=== PATIENT | female | born 1970 | race Caucasian/White ===

== ENCOUNTER 2018-08-23 18:31 | Emergency (ER) | payer MEDICAID, OTHER ==
[~2018-08-23] VITALS: Ht 149.9 cm; Wt 81.6 kg
[2018-08-23 18:42] VITALS: Ht 149.9 cm; Wt 81.6 kg
--- NOTE | 2018-08-23 19:57 | ERD ---
ER Documentation Chief Complaint Chief Complaint left leg pain x 1 month HPI 48-year-old female, previously healthy, presents to the emergency department, complaining of left groin pain radiating to the left lower extremity for 1 month. No history of trauma. The pain is sharp, intermittent, exacerbated by flexion of the left hip, 7/10. The patient is able to ambulate as usually. She denies fever, no chills, no urinary symptoms, no abdominal pain, no rashes. ROS All systems reviewed and are negative except as per history of present illness. Medications Home Meds Active Scripts Ibuprofen* (Motrin*) 400 Mg Tab, 400 MG PO Q6H PRN for PAIN AND OR ELEVATED TEMP, #20 TAB Prov:SHEILA KESSLER MD 08/23/18 Acetaminophen* (Tylenol*) 325 Mg Tablet, 2 TAB PO Q6 PRN for PAIN AND OR ELEVATED TEMP, #20 TAB Prov:SHEILA KESSLER MD 08/23/18 Baclofen* (Baclofen*) 10 Mg Tablet, 10 MG PO QHS, #10 TAB Prov:SHEILA KESSLER MD 08/23/18 Allergies Allergies: Coded Allergies: No Known Allergy (Unverified , 08/23/18) PMhx/Soc Medical and Surgical Hx: pt denies Medical Hx, pt denies Surgical Hx Hx Alcohol Use: No Hx Substance Use: No Hx Tobacco Use: No Smoking Status: Never smoker FmHx Family History: No diabetes, No coronary disease Physical Exam Vitals Vital Signs Date Temp Pulse Resp B/P (MAP) Pulse Ox O2 O2 Flow FiO2 Time Delivery Rate 08/23/18 82 16 142/78 98 Room Air 22:51 (99) 08/23/18 98.7 74 20 164/80 99 18:42 (108) Physical Exam Const: No acute distress Head: Atraumatic Eyes: Normal Conjunctiva ENT: Normal External Ears, Nose and Mouth. Neck: Full range of motion. No meningismus. Resp: Clear to auscultation bilaterally Cardio: Regular rate and rhythm, no murmurs Abd: Soft, non tender, non distended. Normal bowel sounds Skin: No petechiae or rashes Back: No midline or flank tenderness Ext: Left hip with tenderness over the anterior aspect with passive flexion. Otherwise, no cyanosis, or edema Neur: Awake and alert Psych: Normal Mood and Affect Results 24 hrs Laboratory Tests Test 08/23/18 20:14 08/23/18 20:18 POC Beta HCG, Qualitative NEGATIVE Bedside Urine pH (LAB) 6.5 Bedside Urine Protein (LAB) Negative Bedside Urine Glucose (UA) Negative Bedside Urine Ketones (LAB) Negative Bedside Urine Blood Trace-lysed Bedside Urine Nitrite (LAB) Negative Bedside Urine Leukocyte Esterase (L Negative Current Medications Medications Dose Sig/Jose Alejandro Start Time Status Last (Trade) Ordered Route PRN Stop Time Admin Dose Reason Admin Ketorolac 30 mg ONCE STAT 08/23/18 DC 08/23/18 Tromethamine IM 20:00 08/23/18 20:22 (Toradol) 20:04 650 mg ONCE ONCE 08/23/18 DC 08/23/18 Acetaminophen PO 20:00 08/23/18 20:22 (Tylenol 20:04 Tab) Procedures/MDM 1 month with left hip pain: no red flags. Differential diagnosis include but not limited to: Musculoskeletal injury, arthritis, fracture, DVT; low suspicion for acute limb ischemia, septic arthritis, necrotizing fasciitis, compartment syndrome. Neurovascular exam grossly intact. no clinical findings suggestive of acute infectious process, no acute deformity, no edema, no rashes. Pertinent Data: X-rays: No fracture or dislocation Physical examination and clinical presentation consistent most likely with strain of the left inguinal muscle. During the ED course the patient received treatment with Toradol IM presenting overall improvement of the symptoms. Results and clinical impression discussed with the patient who agrees with management. The patient is stable to be treated outpatient and will be discharge d home with recommendations for ice, rest and NSAIDs 3 times daily for 5 days and close monitoring. The patient was instructed to follow up with the primary care provider in the next 48h. If symptoms persist, worsen or new symptoms develop, then patient should return to the ED immediately. Instructions explained and given to patient with acknowledgment and demonstrated understanding. Disclaimer: Inadvertent spelling and grammatical errors are likely due to EHR/dictation software use and do not reflect on the overall quality of patient care. Also, please note that the electronic time recorded on this note does not necessarily reflect the actual time of the patient encounter. Departure Diagnosis: Primary Impression: Left hip pain Additional Impression: Strain of left inguinal muscle Condition: Stable Additional Instructions: Muchas narcisa por [facility] para butler servicio. Esperamos que en butler visita a la alicia de emergencia butler problema medico haya sido solucionado y que se sienta mucho mejor. Para estar seguros que butler mejoria sigue en proceso, le pedimos el favor de hacer chris andrea de seguimiento medico con butler doctor primario en los proximos 2-4 waters. Lleve con usted estos documentos y las medicinas recetadas. Si raquel sintomas empeoran, NO SE ESPERE, por favor regrese a alicia de emergencia INMEDIATAMENTE. En rodolfo que usted no tenga un mdico de atencin primaria: Llame al mdico o clnica comunitaria de referencia que aparece abajo [place]chell las horas de consultorio para hacer chris andrea para que le vean. CLINICAS: [facility] [phone] [facility] [phone] [facility] [phone] [facility] [phone] [facility] [place] [id number] [phone] [facility] [phone] SHEILA CARRENO MD Aug 23, 2018 19:57
[2018-08-23] MEDS ORDERED: ACETAMINOPHEN 325 MG TAB PO ONE (20:00)
[2018-08-23] MEDS ORDERED: KETOROLAC 30 MG INJ IM STA (20:00)
[2018-08-23] MEDS ORDERED: ACET325T33 PO (22:23)
[2018-08-23] MEDS ORDERED: IBUP-1561 PO (22:23)
[2018-08-23] MEDS ORDERED: BACL10TA PO (22:23)
[2018-08-23 22:51] VITALS: BP 142/78; PULSE 82; RESP 16
== END 2018-08-23 22:52 | disposition home or self-care (01) ==
LOC: FTE 18:31
DX: S76.012A Strain of muscle, fascia and tendon of left hip, initial encounter (principal); X58.XXXA Exposure to other specified factors, initial encounter; Y92.9 Unspecified place or not applicable
CPT/HCPCS: 73510; 81003; 81025; 96372; J1885; Z7502; Z7610